=== PATIENT | male | born 1985 | race Caucasian/White ===

== ENCOUNTER 2019-10-23 08:25 | Inpatient (IN) | payer OTHER ==
[2019-10-23 09:17] VITALS: BMI 22.8
--- NOTE | 2019-10-23 10:13 | HP ---
CIWA Score Nausea/Vomitin-No Nausea/No Vomiting Muscle Tremors: None Anxiety: 0-No Anxiety, at Ease Agitation: 0-Normal Activity Paroxysmal Sweats: No Perspiration Orientation: 1-Uncertain about Date Tacttile Disturbances: 0-None Auditory Disturbances: 0-None Visual Disturbances: 1-Very Mild Sensitivity Headache: 0-None Present CIWA-Ar Total Score: 2 - Admission Criteria OASAS Guidelines: Admission for Medically Managed Detox: Requires at least one of the followin. CIWA greater than 12 2. Seizures within the past 24 hours 3. Delirium tremens within the past 24 hours 4. Hallucinations within the past 24 hours 5. Acute intervention needed for co occurring medical disorder 6. Acute intervention needed for co occurring psychiatric disorder 7. Severe withdrawal that cannot be handled at a lower level of care (continued vomiting, continued diarrhea, abnormal vital signs) requiring intravenous medication and/or fluids 8. Admitting History and Physical - Smoking History Smoking history: Current every day smoker Have you smoked in the past 12 months: Yes Aproximately how many cigarettes per day: 20 - Alcohol/Substance Use Hx Alcohol Use: Yes Admission ROS [facility] Allergies/Adverse Reactions: Allergies Allergy/AdvReac Type Severity Reaction Status Date / Time No Known Allergies Allergy Verified 10/23/19 09:04 History of Present Illness: Search Terms: louis carr, 1985 Search Date: 10/23/2019 10:07:39 AM The Drug Utilization Report below displays all of the controlled substance prescriptions, if any, that your patient has filled in the last twelve months. The information displayed on this report is compiled from pharmacy submissions to the Department, and accurately reflects the information as submitted by the pharmacies. This report was requested by: Mariella Schneider | Reference #: [id number] There are no results for the search terms that you entered. pt here referred by methadone program " for detox from heroin" , states current daily use 1 bundle /day IV cocaine 1 gr/day iv , first age of use 18 , latest use today , denies abscess , + OD in January , does not have Narcan @ home . cannabis use - 1/8 /day daily tobacco - daily etoh - occasional benzodiazepines - daily , 5 klonopin or 2-3 xanax x 2 years Pt is poor historian due to intoxication, falls asleep frequently during interview, awakened by verbal stimuli. PMHX : hep C s/p tx 2018 PSych : " I don't know " denies SI / Hi PSHX : denies Exam Limitations: Clinical Condition, Intoxication - Ebola screening Have you traveled outside of the country in the last 21 days: No (N) Have you had contact with anyone from an Ebola affected area: No - Review of Systems Constitutional: Loss of Appetite EENT: reports: Other (denies dysphagia) Respiratory: reports: No Symptoms reported Cardiac: reports: No Symptoms Reported GI: reports: Constipated, Poor Appetite : reports: No Symptoms Reported Musculoskeletal: reports: No Symptoms Reported Integumentary: reports: See HPI Neuro: reports: No Symptoms reported Endocrine: reports: No Symptoms Reported Hematology: reports: No Symptoms Reported Psychiatric: reports: Disorientated Patient History - Patient Medical History Hx Anemia: No Hx Asthma: No Hx Chronic Obstructive Pulmonary Disease (COPD): No Hx Cancer: No Hx Cardiac Disorders: No Hx Congestive Heart Failure: No Hx Hypertension: No Hx Hypercholesterolemia: No Hx Pacemaker: No HX Cerebrovascular Accident: No Hx Seizures: No Hx Dementia: No Hx Diabetes: No Hx Gastrointestinal Disorders: No Hx Liver Disease: Yes Hx Genitourinary Disorders: No Hx Sexually Transmitted Disorders: No Hx Renal Disease (ESRD): No Hx Thyroid Disease: No Hx Human Immunodeficiency Virus (HIV): No Hx Hepatitis C: Yes Hx Depression: No Hx Suicide Attempt: No Hx Bipolar Disorder: Yes Hx Schizophrenia: No - Patient Surgical History Past Surgical History: No Hx Neurologic Surgery: No Hx Cataract Extraction: No Hx Cardiac Surgery: No Hx Lung Surgery: No Hx Breast Surgery: No Hx Breast Biopsy: No Hx Abdominal Surgery: No Hx Appendectomy: No Hx Cholecystectomy: No Hx Genitourinary Surgery: No Hx Section: No Hx Orthopedic Surgery: No Anesthesia Reaction: No - PPD History Date: 02/04/16 - Smoking Cessation Smoking history: Current every day smoker Have you smoked in the past 12 months: Yes Aproximately how many cigarettes per day: 20 Hx Chewing Tobacco Use: No Initiated information on smoking cessation: Yes 'Breaking Loose' booklet given: 10/23/19 - Substances abused Heroin Substance route: Oral Frequency: Daily Amount used: 1 gram Age of first use: 19 Date of last use: 10/23/19 Crack Substance route: Smoking Frequency: Daily Amount used: 1/2 gram Age of first use: 18 Date of last use: 10/22/19 Cocaine Substance route: Injection Amount used: 1 gram Age of first use: 18 Date of last use: 10/22/19 Benzodiazepine (Klonopin) Other (specify): 2mg Substance route: Oral Frequency: Daily Amount used: 4mg Age of first use: 22 Date of last use: 10/23/19 Alprazolam (Xanax) Substance route: Oral Frequency: 3-6 times per week Amount used: 2 sticks Age of first use: 18 Date of last use: 10/23/19 Admission Physical Exam S - Vital Signs Vital Signs: Vital Signs - 24 hr 10/23/19 09:05 Temperature 97.5 F L Pulse Rate 57 L Respiratory 18 Rate Blood Pressure 110/67 - Physical General Appearance: Yes: Intoxicated HEENTM: Yes: EOMI, Hearing grossly Normal, Normocephalic, Normal Voice Respiratory: Yes: Lungs Clear, Normal Breath Sounds, No Respiratory Distress, No Accessory Muscle Use Neck: Yes: No masses,lesions,Nodules, Trachea in good position Cardiology: Yes: Regular Rhythm, Regular Rate, S1, S2, Bradycardia Abdominal: Yes: Non Tender, Soft Musculoskeletal: Yes: Gait Steady Extremities: Yes: Normal Range of Motion, Non-Tender Neurological: Yes: Alert, Motor Strength 5/5, Disoriented, Depressed Affect Integumentary: Yes: Dry, Warm, Track Perez (feliz ante-cubital c/d/i) - Diagnostic (1) Sedative, hypnotic or anxiolytic abuse Current Visit: Yes Status: Chronic (2) Cocaine dependence Current Visit: Yes Status: Chronic (3) Opioid dependence Current Visit: Yes Status: Chronic (4) Nicotine dependence Current Visit: Yes Status: Chronic Qualifiers: Nicotine product type: cigarettes Substance use status: uncomplicated Qualified Code(s): F17.210 - Nicotine dependence, cigarettes, uncomplicated (5) Cannabis dependence, uncomplicated Current Visit: Yes Status: Chronic Inpatient Rehab Admission - Rehab Decision to Admit Inpatient rehab admission?: No
[2019-10-23] MEDS ORDERED: BISMUTH SUBSALICYLATE 524 MG/30 ML UD PO PRN (10:28)
[2019-10-23] MEDS ORDERED: MAG HYDROX/AL HYDROX/SIMETH 30 ML UNIT-DOSE CUP PO PRN (10:28)
[2019-10-23] MEDS ORDERED: IBUPROFEN 400 MG TABLET (FP) PO PRN (10:28)
[2019-10-23] MEDS ORDERED: MENTHOL/PHENOL 1 EACH UD MM PRN (10:28)
[2019-10-23] MEDS ORDERED: MAGNESIUM CITRATE 300 ML BOTTLE PO PRN (10:28)
[2019-10-23] MEDS ORDERED: METHOCARBAMOL 500 MG TABLET PO PRN (10:28)
[2019-10-23] MEDS ORDERED: hydrOXYzine PAMOATE 25 MG CAPSULE (FP) PO PRN (10:28)
[2019-10-23] MEDS ORDERED: MAGNESIUM HYDROX 2400MG/30ML ORAL SUSPENSION 30 ML CUP PO PRN (10:28)
[2019-10-23] MEDS ORDERED: ACETAMINOPHEN 325 MG TABLET (FP) PO PRN ×2 (10:28)
[2019-10-23] MEDS: diazePAM 5 MG TABLET PO PRN ×2 (11:31→18:14)
[2019-10-23] MEDS: METHADONE HCL 40 MG DISPERSABLE TABLET PO SCH (12:55)
[2019-10-23] MEDS: diazePAM 5 MG TABLET PO SCH ×2 (15:02→22:08)
[2019-10-23 15:13] LABS: HEMATOCRIT 40.3 % (35.4-49); HEMOGLOBIN 13.6 GM/dL (11.7-16.9); MCHC 33.6 g/dl (32.0-35.9); MEAN CELL VOLUME 89.3 fl (80-96); MEAN PLT VOLUME 10.6 fl (7.5-11.1); PLATELET COUNT 162 K/MM3 (134-434); RBC 4.52 M/mm3 (4.00-5.60); RDW 13.1 % (11.9-15.9); WHITE BLOOD COUNT 5.5 K/mm3 (4.0-10.0)
[2019-10-23 15:22] LABS: ALBUMIN 3.5 g/dl (3.4-5.0); BILIRUBIN,TOTAL 0.8 mg/dL (0.2-1); BLOOD UREA NITROGEN 9.3 mg/dL (7-18); CALCIUM 8.7 mg/dL (8.5-10.1); POTASSIUM 4.3 mmol/L (3.5-5.1)
[2019-10-23] MEDS: MELATONIN 5 MG TABLETS PO PRN (22:07)
[2019-10-23] MEDS: THIAMINE HCL 100 MG TABLET (FP) PO SCH (22:07)
[2019-10-24] MEDS: diazePAM 5 MG TABLET PO PRN ×4 (04:01→20:50)
[2019-10-24] MEDS: diazePAM 5 MG TABLET PO SCH ×3 (05:54→22:08)
[2019-10-24] MEDS: METHADONE HCL 40 MG DISPERSABLE TABLET PO SCH (05:54)
[2019-10-24] MEDS ORDERED: ACETAMINOPHEN 325 MG TABLET (FP) PO ONE (09:38)
--- NOTE | 2019-10-24 09:43 | PN ---
[facility] CIWA - CIWA Score Nausea/Vomitin-No Nausea/No Vomiting Muscle Tremors: 4-Moderate,w/Arms Extend Anxiety: 4-Mod. Anxious/Guarded Agitation: 2 Paroxysmal Sweats: 1-Minimal Palms Moist Orientation: 0-Oriented Tacttile Disturbances: 1-Very Mild Itch/Numbness Auditory Disturbances: 0-None Visual Disturbances: 0-None Headache: 1-Very Mild CIWA-Ar Total Score: 13 BHS Progress Note (SOAP) Subjective: 34 years old male admitted on 10/23/19 for benzo withdrawal sx management treating with valium detox regimen general body ache tylenal 650mg po x 1 trouble stay in sleep belsomra 5 mg x 1 Objective: 10/24/19 09:47 Vital Signs Temperature 96.8 F L 10/24/19 09:19 Pulse Rate 68 10/24/19 09:19 Respiratory Rate 18 10/24/19 09:19 Blood Pressure 106/69 10/24/19 09:19 O2 Sat by Pulse Oximetry (%) 10/24/19 09:47 Laboratory Last Values WBC 5.5 K/mm3 (4.0-10.0) 10/23/19 10:40 RBC 4.52 M/mm3 (4.00-5.60) 10/23/19 10:40 Hgb 13.6 GM/dL (11.7-16.9) 10/23/19 10:40 Hct 40.3 % (35.4-49) 10/23/19 10:40 MCV 89.3 fl (80-96) 10/23/19 10:40 MCH 30.0 pg (25.7-33.7) 10/23/19 10:40 MCHC 33.6 g/dl (32.0-35.9) 10/23/19 10:40 RDW 13.1 % (11.9-15.9) 10/23/19 10:40 Plt Count 162 K/MM3 (134-434) 10/23/19 10:40 MPV 10.6 fl (7.5-11.1) 10/23/19 10:40 Sodium 138 mmol/L (136-145) 10/23/19 10:40 Potassium 4.3 mmol/L (3.5-5.1) 10/23/19 10:40 Chloride 104 mmol/L (98-107) 10/23/19 10:40 Carbon Dioxide 31 mmol/L (21-32) 10/23/19 10:40 Anion Gap 4 MMOL/L (8-16) L 10/23/19 10:40 BUN 9.3 mg/dL (7-18) 10/23/19 10:40 Creatinine 1.0 mg/dL (0.55-1.3) 10/23/19 10:40 Est GFR (CKD-EPI)AfAm 114.91 10/23/19 10:40 Est GFR (CKD-EPI)NonAf 99.15 10/23/19 10:40 Random Glucose 61 mg/dL (74-106) L 10/23/19 10:40 Calcium 8.7 mg/dL (8.5-10.1) 10/23/19 10:40 Total Bilirubin 0.8 mg/dL (0.2-1) 10/23/19 10:40 AST 12 U/L (15-37) L 10/23/19 10:40 ALT 17 U/L (13-61) 10/23/19 10:40 Alkaline Phosphatase 79 U/L (45-117) 10/23/19 10:40 Total Protein 7.0 g/dl (6.4-8.2) 10/23/19 10:40 Albumin 3.5 g/dl (3.4-5.0) 10/23/19 10:40 lab noted Assessment: 10/24/19 09:47 benzo withdrawal Plan: valium regimen received methadone 80 mg po today feeling better
[2019-10-24] MEDS: PRENATAL VITAMINS W/ FOLIC ACID TABLET (FP) PO SCH (10:16)
[2019-10-24] MEDS ORDERED: ONDANSETRON *ODT* 4 MG TABLET SL ONE (10:47)
[2019-10-24] MEDS ORDERED: SUVOREXANT 5 MG TABLET PO SCH (22:00)
[2019-10-24] MEDS: THIAMINE HCL 100 MG TABLET (FP) PO SCH (22:08)
[2019-10-25] MEDS: diazePAM 5 MG TABLET PO PRN ×2 (02:53→09:10)
[2019-10-25] MEDS: METHADONE HCL 40 MG DISPERSABLE TABLET PO SCH (05:52)
[2019-10-25] MEDS: diazePAM 5 MG TABLET PO SCH ×2 (05:52→17:26)
[2019-10-25] MEDS: PRENATAL VITAMINS W/ FOLIC ACID TABLET (FP) PO SCH (09:10)
--- NOTE | 2019-10-25 12:16 | PN ---
[facility] CIWA - CIWA Score Nausea/Vomitin-Mild Nausea/No Vomiting Muscle Tremors: 3 Anxiety: 3 Agitation: 2 Paroxysmal Sweats: 1-Minimal Palms Moist Orientation: 0-Oriented Tacttile Disturbances: 0-None Auditory Disturbances: 0-None Visual Disturbances: 0-None Headache: 0-None Present CIWA-Ar Total Score: 10 S Progress Note (SOAP) Subjective: 34 years old male admitted on 10/23/19 for benzo withdrawal sx management treating with valium detox regimen feeling better today less anxiety discuss aftercare with staff Objective: 10/25/19 12:16 Vital Signs Temperature 97.4 F L 10/25/19 09:20 Pulse Rate 59 L 10/25/19 09:20 Respiratory Rate 18 10/25/19 09:20 Blood Pressure 111/68 10/25/19 09:20 O2 Sat by Pulse Oximetry (%) Laboratory Last Values WBC 5.5 K/mm3 (4.0-10.0) 10/23/19 10:40 RBC 4.52 M/mm3 (4.00-5.60) 10/23/19 10:40 Hgb 13.6 GM/dL (11.7-16.9) 10/23/19 10:40 Hct 40.3 % (35.4-49) 10/23/19 10:40 MCV 89.3 fl (80-96) 10/23/19 10:40 MCH 30.0 pg (25.7-33.7) 10/23/19 10:40 MCHC 33.6 g/dl (32.0-35.9) 10/23/19 10:40 RDW 13.1 % (11.9-15.9) 10/23/19 10:40 Plt Count 162 K/MM3 (134-434) 10/23/19 10:40 MPV 10.6 fl (7.5-11.1) 10/23/19 10:40 Sodium 138 mmol/L (136-145) 10/23/19 10:40 Potassium 4.3 mmol/L (3.5-5.1) 10/23/19 10:40 Chloride 104 mmol/L (98-107) 10/23/19 10:40 Carbon Dioxide 31 mmol/L (21-32) 10/23/19 10:40 Anion Gap 4 MMOL/L (8-16) L 10/23/19 10:40 BUN 9.3 mg/dL (7-18) 10/23/19 10:40 Creatinine 1.0 mg/dL (0.55-1.3) 10/23/19 10:40 Est GFR (CKD-EPI)AfAm 114.91 10/23/19 10:40 Est GFR (CKD-EPI)NonAf 99.15 10/23/19 10:40 Random Glucose 61 mg/dL (74-106) L 10/23/19 10:40 Calcium 8.7 mg/dL (8.5-10.1) 10/23/19 10:40 Total Bilirubin 0.8 mg/dL (0.2-1) 10/23/19 10:40 AST 12 U/L (15-37) L 10/23/19 10:40 ALT 17 U/L (13-61) 10/23/19 10:40 Alkaline Phosphatase 79 U/L (45-117) 10/23/19 10:40 Total Protein 7.0 g/dl (6.4-8.2) 10/23/19 10:40 Albumin 3.5 g/dl (3.4-5.0) 10/23/19 10:40 RPR Titer Nonreactive (NONREACTIVE) 10/24/19 07:50 lab noted Assessment: 10/25/19 12:16 benzo withdrawal Plan: valium regimen
[2019-10-25] MEDS: MELATONIN 5 MG TABLETS PO PRN (22:15)
[2019-10-25] MEDS: THIAMINE HCL 100 MG TABLET (FP) PO SCH (22:15)
[2019-10-26] MEDS: METHADONE HCL 40 MG DISPERSABLE TABLET PO SCH (05:53)
[2019-10-26] MEDS ORDERED: diazePAM 5 MG TABLET PO ONE (06:00)
[2019-10-26 09:14] VITALS: BP 124/64; PULSE 70; TEMP 98.4
--- NOTE | 2019-10-26 12:44 | DS ---
[facility] Detox Discharge Summary Admission Date: 10/23/19 Discharge Date: 10/26/19 - History Present History: Opioid Dependence, Sedative Dependence, MMTP Pertinent Past History: Pt admitted on MAT methadone. Was also taking illicit benzo. Pt had valium taper and used prn valium.d/w pt jail effects of benzo- pt to f/u with MAT methadone program. Pt will f/u [facility] outpt program and if needed - Physical Exam Results Vital Signs: Vital Signs Temperature 98.4 F 10/26/19 09:11 Pulse Rate 70 10/26/19 09:11 Respiratory Rate 16 10/26/19 09:11 Blood Pressure 124/64 10/26/19 09:11 O2 Sat by Pulse Oximetry (%) - Treatment Hospital Course: Detox Protocol Followed, Detoxed Safely, Responded well, Discharged Condition Good - Medication Discharge Medications: Ambulatory Orders NK [No Known Home Medication] 02/02/16 - AMA Did Patient Leave Against Medical Advice: No
== END 2019-10-26 09:50 | disposition home or self-care (01) | DRG 773 ==
LOC: YASAS 08:25 → Y3N 10:45
PROVIDERS: ADMIT Allergy & Immunology; ATTEND Allergy & Immunology
PROC: HZ2ZZZZ Detoxification Services for Substance Abuse Treatment (ICD-10-PCS; principal; 2019-10-23)
DX: F11.23 Opioid dependence with withdrawal (principal); F14.20 Cocaine dependence, uncomplicated; F12.20 Cannabis dependence, uncomplicated; F13.10 Sedative, hypnotic or anxiolytic abuse, uncomplicated; F17.210 Nicotine dependence, cigarettes, uncomplicated; Z86.19 Personal history of other infectious and parasitic diseases
CPT/HCPCS: 36415; 80053; 85027; 86593; Q0162

== ENCOUNTER 2019-12-25 09:47 | Inpatient (IN) | payer OTHER ==
--- NOTE | 2019-12-25 10:04 | BHS.RME ---
Substance Use & Tx History - Substance Use History Benzodiazepines Substance amount: 3-4 xanax 5mg Frequency of use: Daily Substance route: Oral Date of Last Use: 12/25/19 Opiates (Heroin) Substance amount: 1 bundle Frequency of use: Daily Substance route: Injection (ex: intravenous or skin popping) Date of Last Use: 12/25/19 Cocaine (Crack) Substance amount: 2-3 grams Frequency of use: Daily Substance route: Smoking Date of Last Use: 12/24/19 Cannabis Substance amount: 2-3 grams Frequency of use: Daily Substance route: Smoking Date of Last Use: 12/24/19 Nicotine Substance amount: 1 pack Frequency of use: Daily Substance route: Smoking Date of Last Use: 12/25/19 - Last Treatment Date of last treatment: 4 weeks ago Treatment type: Substance Use Disorder ([facility]) Where was last treatment: Detox Physical/Psych/Mental Status - Behavior General Behavior: Increased activity (restlessness, agitation) Eye Contact: Normal - Cooperativeness Cooperativeness: Cooperative - Thinking Thought Processes: Tight, Logical, Goal Directed Thought content: Future oriented - Physical Health Problems Is patient presently having any pain?: No Does patient presently have any injuries (include location): No Does patient currently have a fever: No Is patient : No COWS - Scale Resting Pulse: 1= NV 81-100 Sweatin= Beads of Sweat on Face Restless Observation: 3= Extraneous Movement Pupil Size: 1= Pupils >than Normal Bone or Joint Aches: 1= Mild Discomfort Runny Nose/ Eye Tearin= Runny Nose/Eyes GI Upset > 30mins: 1= Stomach Cramp Tremor Observation: 2= Slight Tremor Visible Yawning Observation: 1= 1-2x During Session Anxiety or Irritability: 1=Feels Anxious/Irritable Goose Flesh Skin: 0=Smooth Skin COWS Score: 16 (used this morning) CIWA Agitation: 3 Paroxysmal Sweats: 3 Orientation: 0-Oriented
--- NOTE | 2019-12-25 10:56 | HP ---
COWS - Scale Resting Pulse: 1= SD 81-100 Sweatin= Beads of Sweat on Face Restless Observation: 3= Extraneous Movement Pupil Size: 1= Pupils >than Normal Bone or Joint Aches: 1= Mild Discomfort Runny Nose/ Eye Tearin= Runny Nose/Eyes GI Upset > 30mins: 1= Stomach Cramp Tremor Observation: 2= Slight Tremor Visible Yawning Observation: 1= 1-2x During Session Anxiety or Irritability: 1=Feels Anxious/Irritable Goose Flesh Skin: 0=Smooth Skin COWS Score: 16 (used this morning) CIWA Score - Admission Criteria OASAS Guidelines: Admission for Medically Managed Detox: Requires at least one of the followin. CIWA greater than 12 2. Seizures within the past 24 hours 3. Delirium tremens within the past 24 hours 4. Hallucinations within the past 24 hours 5. Acute intervention needed for co occurring medical disorder 6. Acute intervention needed for co occurring psychiatric disorder 7. Severe withdrawal that cannot be handled at a lower level of care (continued vomiting, continued diarrhea, abnormal vital signs) requiring intravenous medication and/or fluids 8. Admitting History and Physical - Admission Chief Complaint: " I am desperate and I need help." History of Present Illness: 34 year old male with heroin dependence on MAT at [facility] on 100 mg of methadone daily. He is dependent on sedative. He is using high doses of Xanax of 5 mg at 3-4 tabs per day. He has overdosed many times, last one was 2 months ago. He is at high risk for overdose as he is using intravenously and has no narcan kit. He is desperate to be admitted as he wishes to cease the use of sedatives. He also smokes of ciggarettes 1 ppd for many years. He is using 1 bundle of heroin daily on top of his methadone and still feels its effect. He last used on 12/24/19. PMH: None, HCV + Psurg: None Psych: Anxiety disorder and Bipolar Disorder This is a high risk patient for overdose. He needs detox and senior care rehab with slow taper off of benzodiazepines. History Source: Patient Limitations to Obtaining History: No Limitations - Past Medical History Hepatobiliary: Yes: Hepatitis C Psych: Yes: Anxiety, Bipolar - Past Surgical History Past Surgical History: Yes: None - Smoking History Smoking history: Current every day smoker Have you smoked in the past 12 months: Yes Aproximately how many cigarettes per day: 20 - Alcohol/Substance Use Hx Alcohol Use: Yes - Social History Usual Living Arrangement: Yes: Alone Do you think of yourself as: Straight/Heterosexual ADL: Independent Occupation: unemployed History of Recent Travel: No Admission ROS [facility] Allergies/Adverse Reactions: Allergies Allergy/AdvReac Type Severity Reaction Status Date / Time No Known Allergies Allergy Verified 12/25/19 10:49 Exam Limitations: No Limitations - Ebola screening Have you traveled outside of the country in the last 21 days: No Have you had contact with anyone from an Ebola affected area: No Have you been sick,other than usual withdrawal symptoms: No Do you have a fever: No Patient History - Patient Medical History Hx Anemia: No Hx Asthma: No Hx Chronic Obstructive Pulmonary Disease (COPD): No Hx Cancer: No Hx Cardiac Disorders: No Hx Congestive Heart Failure: No Hx Hypertension: No Hx Hypercholesterolemia: No Hx Pacemaker: No HX Cerebrovascular Accident: No Hx Seizures: No Hx Dementia: No Hx Diabetes: No Hx Gastrointestinal Disorders: No Hx Liver Disease: Yes Hx Genitourinary Disorders: No Hx Sexually Transmitted Disorders: No Hx Renal Disease (ESRD): No Hx Thyroid Disease: No Hx Human Immunodeficiency Virus (HIV): No Hx Hepatitis C: Yes Hx Depression: No Hx Suicide Attempt: No Hx Bipolar Disorder: Yes Hx Schizophrenia: No - Patient Surgical History Past Surgical History: No Hx Neurologic Surgery: No Hx Cataract Extraction: No Hx Cardiac Surgery: No Hx Lung Surgery: No Hx Breast Surgery: No Hx Breast Biopsy: No Hx Abdominal Surgery: No Hx Appendectomy: No Hx Cholecystectomy: No Hx Genitourinary Surgery: No Hx Section: No Hx Orthopedic Surgery: No Anesthesia Reaction: No - PPD History Previous Implant?: Yes Documented Results: Negative w/proof Implanted On Prior R Admission?: Yes Date: 10/25/19 Results: negative PPD to be Administered?: No - Smoking Cessation Smoking history: Current every day smoker Have you smoked in the past 12 months: Yes Aproximately how many cigarettes per day: 20 Hx Chewing Tobacco Use: No Initiated information on smoking cessation: Yes 'Breaking Loose' booklet given: 12/25/19 - Substances abused Cocaine Substance route: Injection Frequency: Daily Amount used: 3 grams Age of first use: 15 Date of last use: 12/25/19 Alprazolam (Xanax) Substance route: Oral Frequency: Daily Amount used: 25mg Age of first use: 22 Date of last use: 12/24/19 Marijuana/Hashish Substance route: Smoking Frequency: Daily Amount used: 3 grams Age of first use: 15 Date of last use: 12/24/19 Heroin Substance route: Injection Frequency: Daily Amount used: 1 gram Age of first use: 22 Date of last use: 12/25/19 Admission Physical Exam [facility] Physical General Appearance: Yes: Mild Distress, Irritable, Sweating, Anxious HEENTM: Yes: EOMI, Hearing grossly Normal, Normal ENT Inspection, Normocephalic , Normal Voice, ISSA, Pharynx Normal, Tm's normal Respiratory: Yes: Chest Non-Tender, Lungs Clear, Normal Breath Sounds, No Respiratory Distress, No Accessory Muscle Use Neck: Yes: No masses,lesions,Nodules, Supple, Trachea in good position Breast: Yes: Within Normal Limits Cardiology: Yes: Regular Rhythm, S1, S2, Tachycardia Abdominal: Yes: Non Tender, Flat, Soft, Increased Bowel Sounds Genitourinary: Yes: Within Normal Limits Back: Yes: Normal Inspection Musculoskeletal: Yes: full range of Motion, Gait Steady, Pelvis Stable Extremities: Yes: Normal Capillary Refill, Normal Inspection, Normal Range of Motion, Non-Tender Neurological: Yes: workgroup leader II-XII NML intact, Fully Oriented, Alert, Motor Strength 5/5, Normal Mood/Affect, Normal Response Integumentary: Yes: Normal Color, Warm Lymphatic: Yes: Within Normal Limits Cleared for Admission [facility] - Detox or Rehab [facility] Level of Care: Medically Managed Detox Regimen/Protocol: Valium Claeared for Rehab Admission: No Screened but not Admitted - Documentation of Visit Screened but not Admitted: No Breathalyzer - Breathalyzer Breathalyzer: 0 Urine Drug Screen - Test Device Lot number: [id number] Expiration date: 12/25/19 - Control Is test valid?: Yes - Results Drug screen NEGATIVE: No Urine drug screen results: THC-Marijuana, BERNARD-Cocaine, MET-Methamphetamine, AMP- Amphetamines, MOP-Opiates, MTD-Methadone, BZO-Benzodiazepines Inpatient Rehab Admission - Rehab Decision to Admit Inpatient rehab admission?: No
[2019-12-25 11:04] VITALS: BMI 21.7
[2019-12-25] MEDS ORDERED: MAGNESIUM CITRATE 300 ML BOTTLE PO PRN (11:08)
[2019-12-25] MEDS ORDERED: MAG HYDROX/AL HYDROX/SIMETH 30 ML UNIT-DOSE CUP PO PRN (11:08)
[2019-12-25] MEDS ORDERED: ACETAMINOPHEN 325 MG TABLET (FP) PO PRN ×2 (11:08)
[2019-12-25] MEDS ORDERED: MENTHOL/PHENOL 1 EACH UD MM PRN (11:08)
[2019-12-25] MEDS ORDERED: hydrOXYzine PAMOATE 25 MG CAPSULE (FP) PO PRN (11:08)
[2019-12-25] MEDS ORDERED: IBUPROFEN 400 MG TABLET (FP) PO PRN (11:08)
[2019-12-25] MEDS ORDERED: METHOCARBAMOL 500 MG TABLET PO PRN (11:08)
[2019-12-25] MEDS ORDERED: MAGNESIUM HYDROX 2400MG/30ML ORAL SUSPENSION 30 ML CUP PO PRN (11:08)
[2019-12-25] MEDS: NICOTINE 7 MG/24 HOURS TOPICAL PATCH TD SCH (14:03)
[2019-12-25] MEDS: diazePAM 5 MG TABLET PO SCH ×2 (14:04→22:18)
[2019-12-25 16:21] LABS: HEMATOCRIT 41.7 % (35.4-49); HEMOGLOBIN 13.7 GM/dL (11.7-16.9); MCH 29.4 pg (25.7-33.7); MEAN CELL VOLUME 89.1 fl (80-96); MEAN PLT VOLUME 9.7 fl (7.5-11.1); PLATELET COUNT 180 K/MM3 (134-434); RBC 4.68 M/mm3 (4.00-5.60); RDW 14.5 % (11.9-15.9); WHITE BLOOD COUNT 4.4 K/mm3 (4.0-10.0)
[2019-12-25 16:27] LABS: ALBUMIN 3.7 g/dl (3.4-5.0); BILIRUBIN,TOTAL 1.1 mg/dL (0.2-1); BLOOD UREA NITROGEN 16.2 mg/dL (7-18); CALCIUM 9.4 mg/dL (8.5-10.1); CREATININE 0.8 mg/dL (0.55-1.3); TOT PROT 7.8 g/dl (6.4-8.2)
[2019-12-25] MEDS: diazePAM 5 MG TABLET PO PRN ×2 (17:30→20:49)
[2019-12-25] MEDS: THIAMINE HCL 100 MG TABLET (FP) PO SCH (22:18)
[2019-12-25] MEDS: MELATONIN 5 MG TABLETS PO PRN (22:18)
[2019-12-26] MEDS: diazePAM 5 MG TABLET PO PRN ×3 (02:07→18:08)
[2019-12-26] MEDS ORDERED: METHADONE HCL 10 MG TABLET ONE (04:29)
[2019-12-26] MEDS ORDERED: METHADONE HCL 40 MG DISPERSABLE TABLET ONE (04:30)
[2019-12-26] MEDS ORDERED: METHADONE HCL 10 MG TABLET PO SCH (06:00)
[2019-12-26] MEDS: METHADONE 80 MG, METHADONE 20 MG PO SCH (06:27)
[2019-12-26] MEDS: diazePAM 5 MG TABLET PO SCH ×3 (06:27→21:50)
[2019-12-26] MEDS: NICOTINE 7 MG/24 HOURS TOPICAL PATCH TD SCH (10:32)
[2019-12-26] MEDS: PRENATAL VITAMINS W/ FOLIC ACID TABLET (FP) PO SCH (10:32)
--- NOTE | 2019-12-26 13:11 | PN ---
BHS COWS - Scale Resting Pulse: 1= DC 81-100 Sweatin= Chills/Flushing Restless Observation: 1= Difficult to Sit Still Pupil Size: 1= Pupils >than Normal Bone or Joint Aches: 2= Severe Diffuse Aches Runny Nose/ Eye Tearin= Nasal Congestion GI Upset > 30mins: 0= None Tremor Observation of Outstretched Hands: 0= None Yawning Observation: 0= None Anxiety or Irritability: 1=Feels Anxious/Irritable Goose Flesh Skin: 0=Smooth Skin COWS Score: 8 BHS Progress Note (SOAP) Subjective: interrupted sleep, sweats , lighttheaded Objective: 12/26/19 13:08 Vital Signs Temperature 97.9 F 12/26/19 09:15 Pulse Rate 81 12/26/19 09:15 Respiratory Rate 12/26/19 09:15 Blood Pressure 105/63 12/26/19 09:15 O2 Sat by Pulse Oximetry (%) Laboratory Tests 12/25/19 12/25/19 12/25/19 11:20 11:20 11:20 WBC 4.4 RBC 4.68 Hgb 13.7 Hct 41.7 MCV 89.1 MCH 29.4 MCHC 33.0 RDW 14.5 D Plt Count 180 MPV 9.7 Sodium 135 L Potassium 4.0 Chloride 101 Carbon Dioxide 29 Anion Gap 5 L BUN 16.2 Creatinine 0.8 Est GFR (CKD-EPI)AfAm 136.99 Est GFR (CKD-EPI)NonAf 118.20 Random Glucose 144 H Calcium 9.4 Total Bilirubin 1.1 H AST 208 H ALT 282 H Alkaline Phosphatase 145 H Total Protein 7.8 Albumin 3.7 RPR Titer Nonreactive pt aox3 in nad , ambulating Assessment: 12/26/19 13:09 withdrawal sx's lightheaded- mild dehydration elevated transaminases hyperglycemia 12/26/19 13:11 Plan: cont detox increase fluids repeat sgot/sgpt d/c tylenol bgm daily
[2019-12-26] MEDS: MELATONIN 5 MG TABLETS PO PRN (21:50)
[2019-12-26] MEDS: THIAMINE HCL 100 MG TABLET (FP) PO SCH (21:50)
[2019-12-27] MEDS ORDERED: METHADONE HCL 40 MG DISPERSABLE TABLET ONE (04:32)
[2019-12-27] MEDS ORDERED: METHADONE HCL 10 MG TABLET ONE (04:32)
[2019-12-27] MEDS: METHADONE 80 MG, METHADONE 20 MG PO SCH (06:01)
[2019-12-27] MEDS: diazePAM 5 MG TABLET PO SCH ×2 (06:01→18:25)
[2019-12-27] MEDS: BISMUTH SUBSALICYLATE 262 MG/15 ML BTL PO PRN ×2 (06:27→08:41)
[2019-12-27] MEDS: diazePAM 5 MG TABLET PO PRN ×4 (08:41→21:06)
[2019-12-27 10:11] LABS: SGOT/AST 222 U/L (15-37); SGPT/ALT 305 U/L (13-61)
[2019-12-27] MEDS ORDERED: cloNIDine HCL 0.1 MG TABLET PO PRN (10:59)
--- NOTE | 2019-12-27 11:03 | PN ---
S CIWA - CIWA Score Nausea/Vomitin-Mild Nausea/No Vomiting Muscle Tremors: 1-None Visible, but [place] Anxiety: 1-Mildly Anxious Agitation: 1-Slight > Activity Paroxysmal Sweats: No Perspiration Orientation: 0-Oriented Tacttile Disturbances: 0-None Auditory Disturbances: 0-None Visual Disturbances: 0-None Headache: 0-None Present CIWA-Ar Total Score: 4 BHS Progress Note (SOAP) Subjective: pr here for benzo detox. On methadone. says he is fine. Wants to go to rehab O: Vital Signs - 24 hr 12/26/19 12/26/19 12/26/19 13:20 16:55 21:15 Temperature 97.7 F 97.9 F 97.3 F L Pulse Rate 65 60 68 Respiratory 18 18 17 Rate Blood Pressure 121/59 L 102/63 113/61 12/27/19 12/27/19 12/27/19 00:28 05:58 10:48 Temperature 96.8 F L 97.9 F Pulse Rate 63 66 Respiratory 18 18 16 Rate Blood Pressure 119/59 L 99/63 Laboratory Tests 12/25/19 12/25/19 12/25/19 11:20 11:20 11:20 WBC 4.4 RBC 4.68 Hgb 13.7 Hct 41.7 MCV 89.1 MCH 29.4 MCHC 33.0 RDW 14.5 D Plt Count 180 MPV 9.7 Sodium 135 L Potassium 4.0 Chloride 101 Carbon Dioxide 29 Anion Gap 5 L BUN 16.2 Creatinine 0.8 Est GFR (CKD-EPI)AfAm 136.99 Est GFR (CKD-EPI)NonAf 118.20 POC Glucometer Random Glucose 144 H Calcium 9.4 Total Bilirubin 1.1 H AST 208 H ALT 282 H Alkaline Phosphatase 145 H Total Protein 7.8 Albumin 3.7 RPR Titer Nonreactive 12/27/19 12/27/19 05:27 07:30 WBC RBC Hgb Hct MCV MCH MCHC RDW Plt Count MPV Sodium Potassium Chloride Carbon Dioxide Anion Gap BUN Creatinine Est GFR (CKD-EPI)AfAm Est GFR (CKD-EPI)NonAf POC Glucometer 107 Random Glucose Calcium Total Bilirubin AST 222 H ALT 305 H Alkaline Phosphatase Total Protein Albumin RPR Titer high liver enzymes- repeat still high a/p Polysubstance use, in a methadone program here for benzo detox increased liver enzymes- check HCV test, HCV RNA negative 03/2019
[2019-12-27] MEDS: NICOTINE 7 MG/24 HOURS TOPICAL PATCH TD SCH (11:07)
[2019-12-27] MEDS: PRENATAL VITAMINS W/ FOLIC ACID TABLET (FP) PO SCH (11:07)
[2019-12-27] MEDS: THIAMINE HCL 100 MG TABLET (FP) PO SCH (23:21)
[2019-12-28] MEDS: diazePAM 5 MG TABLET PO PRN (01:14)
[2019-12-28] MEDS ORDERED: METHADONE HCL 10 MG TABLET ONE (04:35)
[2019-12-28] MEDS ORDERED: METHADONE HCL 40 MG DISPERSABLE TABLET ONE (04:35)
[2019-12-28] MEDS: METHADONE 80 MG, METHADONE 20 MG PO SCH (05:56)
[2019-12-28] MEDS ORDERED: diazePAM 5 MG TABLET PO ONE (06:00)
[2019-12-28 06:32] VITALS: BP 97/51; PULSE 60; TEMP 97.2
--- NOTE | 2019-12-28 10:44 | EKG ---
Test Reason : Blood Pressure : / mmHG Vent. Rate : 061 BPM Atrial Rate : 061 BPM P-R Int : 136 ms QRS Dur : 108 ms QT Int : 454 ms P-R-T Axes : 040 047 041 degrees QTc Int : 457 ms NORMAL SINUS RHYTHM NON-SPECIFIC INTRA-VENTRICULAR CONDUCTION DELAY NO PREVIOUS ECGS AVAILABLE Confirmed by ELISE ALVA MD ([id number]) on 12/28/2019 10:44:27 AM Referred By: Confirmed By:ELISE ALVA MD
== END 2019-12-28 07:00 | disposition home or self-care (01) | DRG 773 ==
LOC: YASAS 09:47 → Y6N 11:44
PROVIDERS: ADMIT Allergy & Immunology; ATTEND Allergy & Immunology
PROC: HZ2ZZZZ Detoxification Services for Substance Abuse Treatment (ICD-10-PCS; principal; 2019-12-25)
DX: F13.230 Sedative, hypnotic or anxiolytic dependence with withdrawal, uncomplicated (principal); F11.23 Opioid dependence with withdrawal; F14.20 Cocaine dependence, uncomplicated; F12.20 Cannabis dependence, uncomplicated; F17.210 Nicotine dependence, cigarettes, uncomplicated; F31.9 Bipolar disorder, unspecified; F41.9 Anxiety disorder, unspecified; R94.5 Abnormal results of liver function studies; R73.9 Hyperglycemia, unspecified
CPT/HCPCS: 36415; 80053; 82962; 84450; 84460; 85027; 86593; 93005; 93010

== ENCOUNTER 2021-04-03 08:18 | Inpatient (IN) | payer OTHER ==
[2021-04-03 08:51] VITALS: BMI 23.5
[2021-04-03] MEDS ORDERED: MAGNESIUM CITRATE 300 ML BOTTLE PO PRN (09:28)
[2021-04-03] MEDS ORDERED: NICOTINE POLACRILEX 2 MG GUM BUC PRN (09:28)
[2021-04-03] MEDS ORDERED: MENTHOL/PHENOL 1 EACH UD MM PRN (09:28)
[2021-04-03] MEDS ORDERED: BISMUTH SUBSALICYLATE 524 MG/30 ML PO PRN (09:28)
[2021-04-03] MEDS ORDERED: IBUPROFEN 400 MG TABLET (FP) PO PRN (09:28)
[2021-04-03] MEDS ORDERED: MAGNESIUM HYDROX 2400MG/30ML ORAL SUSPENSION 30 ML CUP PO PRN (09:28)
[2021-04-03] MEDS ORDERED: MAG HYDROX/AL HYDROX/SIMETH 30 ML UNIT-DOSE CUP PO PRN (09:28)
[2021-04-03] MEDS ORDERED: ACETAMINOPHEN 325 MG TABLET (FP) PO PRN ×2 (09:28)
[2021-04-03] MEDS ORDERED: hydrOXYzine PAMOATE 25 MG CAPSULE (FP) PO SCH (10:00)
[2021-04-03] MEDS: hydrOXYzine PAMOATE 25 MG CAPSULE (FP) PO PRN (11:41)
[2021-04-03] MEDS: diazePAM 5 MG TABLET PO SCH ×3 (11:42→22:28)
[2021-04-03] MEDS: PRENATAL VITAMINS W/ FOLIC ACID TABLET (FP) PO SCH (11:42)
[2021-04-03] MEDS: METHOCARBAMOL 500 MG TABLET PO PRN (11:42)
[2021-04-03] MEDS: NICOTINE 14 MG/24 HOURS TOPICAL PATCH TD SCH (11:44)
[2021-04-03 12:10] LABS: HEMATOCRIT 37.3 % (35.4-49); HEMOGLOBIN 12.6 GM/dL (11.7-16.9); MCH 29.4 pg (25.7-33.7); MCHC 33.8 g/dl (32.0-35.9); MEAN PLT VOLUME 10.6 fl (7.5-11.1); PLATELET COUNT 163 K/MM3 (134-434); RBC 4.29 M/mm3 (4.00-5.60); RDW 13.3 % (11.9-15.9); WHITE BLOOD COUNT 4.7 K/mm3 (4.0-10.0)
[2021-04-03 12:22] LABS: ALBUMIN 3.4 g/dl (3.4-5.0); BLOOD UREA NITROGEN 10.2 mg/dL (7-18); CALCIUM 8.8 mg/dL (8.5-10.1)
[2021-04-03 12:25] LABS: CREATININE 0.8 mg/dL (0.55-1.3)
[2021-04-03 12:27] LABS: BILIRUBIN,TOTAL 0.6 mg/dL (0.2-1); TOT PROT 6.9 g/dl (6.4-8.2)
[2021-04-03 13:04] LABS: HIV INTERPRETATION NEGATIVE (NEGATIVE)
[2021-04-03] MEDS: diazePAM 5 MG TABLET PO PRN (15:51)
[2021-04-03] MEDS: MELATONIN 5 MG TABLETS PO SCH (22:28)
[2021-04-03] MEDS: THIAMINE HCL 100 MG TABLET (FP) PO SCH (22:28)
[2021-04-04] MEDS ORDERED: METHADONE HCL 40 MG DISPERSABLE TABLET ONE (04:47)
[2021-04-04] MEDS ORDERED: METHADONE HCL 10 MG TABLET ONE (04:47)
[2021-04-04] MEDS ORDERED: METHADONE HCL 10 MG TABLET PO SCH (06:00)
[2021-04-04] MEDS: METHADONE 80 MG, METHADONE 30 MG PO SCH (06:06)
[2021-04-04] MEDS: diazePAM 5 MG TABLET PO SCH ×4 (06:08→22:23)
[2021-04-04] MEDS: NICOTINE 14 MG/24 HOURS TOPICAL PATCH TD SCH (10:15)
[2021-04-04] MEDS: PRENATAL VITAMINS W/ FOLIC ACID TABLET (FP) PO SCH (10:15)
[2021-04-04] MEDS: hydrOXYzine PAMOATE 25 MG CAPSULE (FP) PO PRN ×2 (10:16→18:09)
[2021-04-04] MEDS: ONDANSETRON *ODT* 4 MG TABLET SL PRN (10:16)
[2021-04-04] MEDS: METHOCARBAMOL 500 MG TABLET PO PRN ×2 (10:16→18:09)
[2021-04-04] MEDS: THIAMINE HCL 100 MG TABLET (FP) PO SCH (22:23)
[2021-04-04] MEDS: MELATONIN 5 MG TABLETS PO SCH (22:23)
[2021-04-05] MEDS: diazePAM 5 MG TABLET PO PRN ×2 (00:34→10:09)
[2021-04-05] MEDS ORDERED: METHADONE HCL 10 MG TABLET ONE (03:43)
[2021-04-05] MEDS ORDERED: METHADONE HCL 40 MG DISPERSABLE TABLET ONE (03:44)
[2021-04-05] MEDS: METHOCARBAMOL 500 MG TABLET PO PRN ×2 (03:59→22:29)
[2021-04-05] MEDS: METHADONE 80 MG, METHADONE 30 MG PO SCH (06:13)
[2021-04-05] MEDS: hydrOXYzine PAMOATE 25 MG CAPSULE (FP) PO PRN ×3 (06:14→22:28)
[2021-04-05] MEDS: diazePAM 5 MG TABLET PO SCH ×3 (06:14→22:27)
[2021-04-05] MEDS: NICOTINE 14 MG/24 HOURS TOPICAL PATCH TD SCH (10:08)
[2021-04-05] MEDS: PRENATAL VITAMINS W/ FOLIC ACID TABLET (FP) PO SCH (10:11)
[2021-04-05] MEDS: THIAMINE HCL 100 MG TABLET (FP) PO SCH (22:28)
[2021-04-05] MEDS: MELATONIN 5 MG TABLETS PO SCH (22:28)
[2021-04-06] MEDS: diazePAM 5 MG TABLET PO PRN (03:51)
[2021-04-06] MEDS: METHOCARBAMOL 500 MG TABLET PO PRN ×3 (03:51→22:21)
[2021-04-06] MEDS ORDERED: METHADONE HCL 10 MG TABLET ONE (04:32)
[2021-04-06] MEDS ORDERED: METHADONE HCL 40 MG DISPERSABLE TABLET ONE (04:32)
[2021-04-06] MEDS: METHADONE 80 MG, METHADONE 30 MG PO SCH (06:01)
[2021-04-06] MEDS: diazePAM 5 MG TABLET PO SCH ×2 (06:01→17:27)
[2021-04-06] MEDS: PRENATAL VITAMINS W/ FOLIC ACID TABLET (FP) PO SCH (10:13)
[2021-04-06] MEDS: NICOTINE 14 MG/24 HOURS TOPICAL PATCH TD SCH (10:13)
[2021-04-06] MEDS: hydrOXYzine PAMOATE 25 MG CAPSULE (FP) PO PRN ×2 (10:16→22:21)
[2021-04-06] MEDS: ONDANSETRON *ODT* 4 MG TABLET SL PRN (10:16)
[2021-04-06 20:22] VITALS: PULSE 55; TEMP 96.9
[2021-04-06] MEDS: MELATONIN 5 MG TABLETS PO SCH (22:20)
[2021-04-06] MEDS: THIAMINE HCL 100 MG TABLET (FP) PO SCH (22:20)
[2021-04-07] MEDS ORDERED: METHADONE HCL 40 MG DISPERSABLE TABLET ONE (03:34)
[2021-04-07] MEDS ORDERED: METHADONE HCL 10 MG TABLET ONE (03:34)
[2021-04-07] MEDS: METHADONE 80 MG, METHADONE 30 MG PO SCH (05:36)
[2021-04-07] MEDS ORDERED: diazePAM 5 MG TABLET PO ONE (06:00)
[2021-04-07 06:31] VITALS: BP 97/57
[2021-04-07] MEDS: NICOTINE 14 MG/24 HOURS TOPICAL PATCH TD SCH (09:00)
[2021-04-07] MEDS: PRENATAL VITAMINS W/ FOLIC ACID TABLET (FP) PO SCH (09:00)
[2021-04-08 06:09] LABS: SARS-CoV-2 NAA Not Detected (Not Detected)
== END 2021-04-07 09:05 | disposition home or self-care (01) | DRG 773 ==
LOC: YASAS 08:18 → Y3N 09:36
PROVIDERS: ADMIT Allergy & Immunology; ATTEND Allergy & Immunology
PROC: HZ2ZZZZ Detoxification Services for Substance Abuse Treatment (ICD-10-PCS; principal; 2021-04-03)
DX: F10.230 Alcohol dependence with withdrawal, uncomplicated (principal); F13.230 Sedative, hypnotic or anxiolytic dependence with withdrawal, uncomplicated; F11.20 Opioid dependence, uncomplicated; F14.20 Cocaine dependence, uncomplicated; F16.20 Hallucinogen dependence, uncomplicated; F17.210 Nicotine dependence, cigarettes, uncomplicated; F19.282 Other psychoactive substance dependence with psychoactive substance-induced sleep disorder; F19.24 Other psychoactive substance dependence with psychoactive substance-induced mood disorder; F31.9 Bipolar disorder, unspecified; F90.9 Attention-deficit hyperactivity disorder, unspecified type; B18.2 Chronic viral hepatitis C; M54.5 Low back pain; G89.29 Other chronic pain; Z62.810 Personal history of physical and sexual abuse in childhood; Z91.410 Personal history of adult physical and sexual abuse
CPT/HCPCS: 36415; 80053; 85027; 86780; 87389; C9803; Q0162; U0003; U0005

== ENCOUNTER 2022-03-16 09:22 | Inpatient (IN) | payer MEDICARE, OTHER ==
[2022-03-16 09:59] VITALS: BMI 26.1
[2022-03-16] MEDS ORDERED: DICYCLOMINE HCL 10 MG CAPSULE PO PRN (10:38)
[2022-03-16] MEDS ORDERED: BENZOCAINE/MENTHOL (CHLORASEPTIC ) LOZENGE MM PRN (10:38)
[2022-03-16] MEDS ORDERED: LOPERAMIDE HCL 2 MG CAPSULE PO PRN (10:38)
[2022-03-16] MEDS ORDERED: ONDANSETRON *ODT* 4 MG TABLET SL PRN (10:38)
[2022-03-16] MEDS ORDERED: NICOTINE 10 MG CARTRIDGE (INHALER) IH PRN (10:38)
[2022-03-16] MEDS ORDERED: MAG HYDROX/AL HYDROX/SIMETH 30 ML UNIT-DOSE CUP PO PRN (10:38)
[2022-03-16] MEDS ORDERED: BISMUTH SUBSALICYLATE 524 MG/30 ML PO PRN (10:38)
[2022-03-16] MEDS ORDERED: NALOXONE HCL (KLOXXADO) 8 MG SPRAY NS PRN (10:38)
[2022-03-16] MEDS ORDERED: MAGNESIUM CITRATE 300 ML BOTTLE PO PRN (10:38)
[2022-03-16] MEDS ORDERED: ACETAMINOPHEN 325 MG TABLET (FP) PO PRN ×2 (10:38)
[2022-03-16] MEDS ORDERED: MAGNESIUM HYDROX 2400MG/30ML ORAL SUSPENSION 30 ML CUP PO PRN (10:38)
[2022-03-16] MEDS ORDERED: IBUPROFEN 400 MG TABLET (FP) PO PRN (10:38)
[2022-03-16] MEDS: PRENATAL VITAMINS W/ FOLIC ACID TABLET (FP) PO SCH (11:59)
[2022-03-16] MEDS: METHOCARBAMOL 500 MG TABLET PO PRN ×2 (12:01→18:14)
[2022-03-16] MEDS: hydrOXYzine PAMOATE 25 MG CAPSULE (FP) PO SCH ×3 (14:47→22:53)
[2022-03-16] MEDS: THIAMINE HCL 100 MG TABLET (FP) PO SCH (22:53)
[2022-03-16] MEDS: MELATONIN 5 MG TABLETS PO SCH (22:53)
[2022-03-17] MEDS ORDERED: methaDONE HCL 40 MG DISPERSABLE TABLET ONE (04:27)
[2022-03-17] MEDS ORDERED: methaDONE HCL 10 MG TABLET ONE (04:27)
[2022-03-17] MEDS: hydrOXYzine PAMOATE 25 MG CAPSULE (FP) PO SCH ×5 (06:07→23:42)
[2022-03-17] MEDS ORDERED: methaDONE HCL 40 MG DISPERSABLE TABLET PO SCH (10:00)
[2022-03-17] MEDS: PRENATAL VITAMINS W/ FOLIC ACID TABLET (FP) PO SCH (10:37)
[2022-03-17] MEDS: METHOCARBAMOL 500 MG TABLET PO PRN (10:39)
[2022-03-17 10:58] LABS: HEMATOCRIT 37.9 % (35.4-49); HEMOGLOBIN 12.9 GM/dL (11.7-16.9); MCH 28.8 pg (25.7-33.7); MCHC 34.1 g/dl (32.0-35.9); MEAN CELL VOLUME 84.7 fl (80-96); MEAN PLT VOLUME 9.2 fl (7.5-11.1); PLATELET COUNT 137 10^3/uL (134-434); RBC 4.47 M/mm3 (4.00-5.60); RDW 13.5 % (11.9-15.9); WHITE BLOOD COUNT 3.1 K/mm3 (4.0-10.0)
[2022-03-17 11:36] LABS: ALBUMIN 3.1 g/dl (3.4-5.0); BLOOD UREA NITROGEN 13.3 mg/dL (7-18)
[2022-03-17 11:37] LABS: CALCIUM 8.7 mg/dL (8.5-10.1)
[2022-03-17 11:39] LABS: CREATININE 0.8 mg/dL (0.55-1.3)
[2022-03-17 11:40] LABS: BILIRUBIN,TOTAL 0.8 mg/dL (0.2-1); TOT PROT 6.3 g/dl (6.4-8.2)
[2022-03-17] MEDS: MELATONIN 5 MG TABLETS PO SCH (23:42)
[2022-03-17] MEDS: THIAMINE HCL 100 MG TABLET (FP) PO SCH (23:42)
[2022-03-18] MEDS ORDERED: methaDONE HCL 40 MG DISPERSABLE TABLET ONE (04:05)
[2022-03-18] MEDS ORDERED: methaDONE HCL 10 MG TABLET ONE (04:05)
[2022-03-18] MEDS: hydrOXYzine PAMOATE 25 MG CAPSULE (FP) PO SCH ×2 (06:07→11:01)
[2022-03-18 09:24] VITALS: BP 125/68; PULSE 75; TEMP 96.8
[2022-03-18] MEDS: METHOCARBAMOL 500 MG TABLET PO PRN (11:01)
[2022-03-18] MEDS: PRENATAL VITAMINS W/ FOLIC ACID TABLET (FP) PO SCH (11:01)
[2022-03-19 00:14] LABS: SARS-CoV-2 NAA Not Detected (Not Detected)
== END 2022-03-18 12:11 | disposition other institution (70) | DRG 897 ==
LOC: YASAS 09:22 → Y6N 11:15
PROVIDERS: ADMIT Allergy & Immunology; ATTEND Surgery
PROC: HZ2ZZZZ Detoxification Services for Substance Abuse Treatment (ICD-10-PCS; principal; 2022-03-16)
DX: F10.230 Alcohol dependence with withdrawal, uncomplicated (principal); F11.20 Opioid dependence, uncomplicated; F13.20 Sedative, hypnotic or anxiolytic dependence, uncomplicated; F14.20 Cocaine dependence, uncomplicated; F12.20 Cannabis dependence, uncomplicated; F17.210 Nicotine dependence, cigarettes, uncomplicated; F31.9 Bipolar disorder, unspecified; F90.9 Attention-deficit hyperactivity disorder, unspecified type; B18.2 Chronic viral hepatitis C; M54.50 Low back pain, unspecified; G89.29 Other chronic pain; Z62.810 Personal history of physical and sexual abuse in childhood; Z91.410 Personal history of adult physical and sexual abuse; Z86.19 Personal history of other infectious and parasitic diseases; Z28.310 Unvaccinated for COVID-19
CPT/HCPCS: 36415; 80053; 85027; 86780; 87811; C9803-CS; U0003; U0005

== ENCOUNTER 2022-03-18 12:44 | Inpatient (IN) | payer OTHER ==
[2022-03-18] MEDS ORDERED: NICOTINE 10 MG CARTRIDGE (INHALER) IH PRN (14:08)
[2022-03-18] MEDS ORDERED: IBUPROFEN 400 MG TABLET (FP) PO PRN (14:08)
[2022-03-18] MEDS ORDERED: BENZOCAINE/MENTHOL (CHLORASEPTIC ) LOZENGE MM PRN (14:08)
[2022-03-18] MEDS ORDERED: P-EPHED 60MG/TRIPROLIDI 2.5MG TABLET PO PRN (14:08)
[2022-03-18] MEDS ORDERED: guaiFENesin 200 MG/10 ML 10 ML UNIT-DOSE CUPS PO PRN (14:08)
[2022-03-18] MEDS ORDERED: MAGNESIUM HYDROX 2400MG/30ML ORAL SUSPENSION 30 ML CUP PO PRN (14:08)
[2022-03-18] MEDS ORDERED: MAGNESIUM CITRATE 300 ML BOTTLE PO PRN (14:08)
[2022-03-18] MEDS ORDERED: MAG HYDROX/AL HYDROX/SIMETH 30 ML UNIT-DOSE CUP PO PRN (14:08)
[2022-03-18] MEDS ORDERED: ACETAMINOPHEN 325 MG TABLET (FP) PO PRN (14:08)
[2022-03-18] MEDS ORDERED: LOPERAMIDE HCL 2 MG CAPSULE PO PRN (14:08)
[2022-03-18] MEDS: hydrOXYzine PAMOATE 25 MG CAPSULE (FP) PO SCH ×2 (19:25→21:39)
[2022-03-18] MEDS: busPIRone HCL 5 MG TABLET PO SCH (21:39)
[2022-03-18] MEDS ORDERED: hydrOXYzine PAMOATE 50 MG CAPSULE (FP) PO SCH (22:00)
[2022-03-18] MEDS ORDERED: MELATONIN 5 MG TABLETS PO SCH (22:00)
[2022-03-18] MEDS ORDERED: THIAMINE HCL 100 MG TABLET (FP) PO SCH (22:00)
[2022-03-19] MEDS: hydrOXYzine PAMOATE 25 MG CAPSULE (FP) PO SCH ×2 (06:50→09:41)
[2022-03-19] MEDS ORDERED: methaDONE HCL 40 MG DISPERSABLE TABLET ONE (09:10)
[2022-03-19] MEDS ORDERED: methaDONE HCL 10 MG TABLET ONE (09:10)
[2022-03-19 09:17] VITALS: BP 122/69; PULSE 74
[2022-03-19] MEDS: busPIRone HCL 5 MG TABLET PO SCH (09:41)
[2022-03-19] MEDS ORDERED: PRENATAL VITAMINS W/ FOLIC ACID TABLET (FP) PO SCH (10:00)
[2022-03-19] MEDS ORDERED: NICOTINE 7 MG/24 HOURS TOPICAL PATCH TD SCH (10:00)
[2022-03-19] MEDS ORDERED: methaDONE HCL 40 MG DISPERSABLE TABLET PO SCH (10:00)
== END 2022-03-19 10:21 | disposition home or self-care (01) | DRG 773 ==
LOC: YASAS 12:44 → Y3W 12:45
PROVIDERS: ADMIT Allergy & Immunology; ATTEND Psychiatry & Neurology Pain Medicine
PROC: HZ2ZZZZ Detoxification Services for Substance Abuse Treatment (ICD-10-PCS; principal; 2022-03-18)
DX: F11.20 Opioid dependence, uncomplicated (principal); F14.20 Cocaine dependence, uncomplicated; F13.20 Sedative, hypnotic or anxiolytic dependence, uncomplicated; F12.20 Cannabis dependence, uncomplicated; F17.210 Nicotine dependence, cigarettes, uncomplicated; F41.9 Anxiety disorder, unspecified; Z86.19 Personal history of other infectious and parasitic diseases

== ENCOUNTER 2024-07-13 15:00 | Inpatient (IN) | payer MEDICARE, OTHER ==
[2024-07-13 16:32] VITALS: BMI 25.0
[2024-07-13] MEDS ORDERED: BENZOCAINE/MENTHOL (CHLORASEPTIC ) LOZENGE MM PRN (18:53)
[2024-07-13] MEDS ORDERED: IBUPROFEN 600 MG TABLET (FP) PO PRN (18:53)
[2024-07-13] MEDS ORDERED: METHOCARBAMOL 500 MG TABLET PO PRN (18:53)
[2024-07-13] MEDS ORDERED: LOPERAMIDE HCL 2 MG CAPSULE PO PRN (18:53)
[2024-07-13] MEDS ORDERED: MAGNESIUM HYDROX 2400MG/30ML ORAL SUSPENSION 30 ML CUP PO PRN (18:53)
[2024-07-13] MEDS ORDERED: NALOXONE (NARCAN) HCL 4 MG/0.1 ML SPRAY NS PRN (18:53)
[2024-07-13] MEDS ORDERED: POLYETHYLENE GLYCOL (HEALTHYLAX) 3350 17 GM PACKET PO PRN (18:53)
[2024-07-13] MEDS ORDERED: BENZONATATE 200 MG CAPSULE PO PRN (18:53)
[2024-07-13] MEDS ORDERED: NALOXONE HCL 0.4 MG/ML VIAL IM PRN (18:53)
[2024-07-13] MEDS ORDERED: ONDANSETRON *ODT* 4 MG TABLET SL PRN (18:53)
[2024-07-13] MEDS ORDERED: IBUPROFEN 400 MG TABLET (FP) PO PRN (18:53)
[2024-07-13] MEDS ORDERED: guaiFENesin 600 MG TABLET.ER (FP) PO PRN (18:53)
[2024-07-13] MEDS ORDERED: MAG HYDROX/AL HYDROX/SIMETH 30 ML UNIT-DOSE CUP PO PRN (18:53)
[2024-07-13] MEDS ORDERED: hydrOXYzine PAMOATE 25 MG CAPSULE (FP) PO PRN (18:53)
[2024-07-13] MEDS ORDERED: BISMUTH SUBSALICYLATE 524 MG/30 ML PO PRN (18:53)
[2024-07-13] MEDS ORDERED: ACETAMINOPHEN 325 MG TABLET (FP) PO PRN (18:53)
[2024-07-13] MEDS ORDERED: DICYCLOMINE HCL 10 MG CAPSULE PO PRN (18:53)
[2024-07-13] MEDS: MELATONIN 5 MG TABLETS PO SCH (22:34)
[2024-07-13] MEDS: THIAMINE 100 MG TABLET PO SCH (22:35)
[2024-07-14] MEDS: PRENATAL VITAMINS W/ FOLIC ACID TABLET (FP) PO SCH (10:49)
[2024-07-14] MEDS: diazePAM 5 MG TABLET PO SCH (10:51)
[2024-07-14] MEDS: methaDONE HCL 10 MG TABLET PO SCH (10:54)
[2024-07-14] MEDS: diazePAM 5 MG TABLET PO PRN (14:03)
[2024-07-14 14:16] LABS: CHLORIDE 100 mmol/L (98-107); HEMATOCRIT 34.8 % (35.4-49); HEMOGLOBIN 11.6 GM/dL (11.7-16.9); MCH 28.6 pg (25.7-33.7); MCHC 33.4 g/dl (32.0-35.9); MEAN CELL VOLUME 85.4 fl (80-96); MEAN PLT VOLUME 9.3 fl (7.5-11.1); PLATELET COUNT 182 10^3/uL (134-434); POTASSIUM 4.4 mmol/L (3.5-5.1); RBC 4.08 M/mm3 (4.00-5.60); RDW 13.4 % (11.9-15.9); SODIUM 135 mmol/L (136-145); WHITE BLOOD COUNT 5.1 K/mm3 (4.0-10.0)
[2024-07-14 14:19] LABS: CALCIUM 8.9 mg/dL (8.5-10.1)
[2024-07-14 14:20] LABS: ALBUMIN 2.9 g/dl (3.4-5.0); ANION GAP 3 mmol/L (4-13); BLOOD UREA NITROGEN 17.5 mg/dL (7-18); CO2 32 mmol/L (21-32); GLUCOSE,RANDOM 112 mg/dL (74-106)
[2024-07-14 14:23] LABS: CREATININE 0.6 mg/dL (0.55-1.3); SGOT/AST 29 U/L (15-37); SGPT/ALT 35 U/L (13-61)
[2024-07-14 14:25] LABS: BILIRUBIN,TOTAL 0.5 mg/dL (0.2-1); TOT PROT 6.5 g/dl (6.4-8.2)
[2024-07-14 14:26] LABS: ALK PHOS 102 U/L (45-117)
[2024-07-15 16:54] VITALS: BP 122/68; PULSE 78; RESP 18; TEMP 97.6
[2024-07-15] MEDS: diazePAM 5 MG TABLET PO SCH (18:07)
[2024-07-16] MEDS ORDERED: diazePAM 5 MG TABLET PO SCH (06:00)
[2024-07-17] MEDS ORDERED: diazePAM 5 MG TABLET PO SCH (06:00)
[2024-07-18] MEDS ORDERED: diazePAM 5 MG TABLET PO ONE (06:00)
== END 2024-07-15 19:50 | disposition left against medical advice (07) | DRG 894 ==
LOC: YASAS 15:00 → Y3N 19:17
PROVIDERS: ADMIT Allergy & Immunology; ATTEND Surgery
PROC: HZ2ZZZZ Detoxification Services for Substance Abuse Treatment (ICD-10-PCS; principal; 2024-07-13)
DX: F10.230 Alcohol dependence with withdrawal, uncomplicated (principal); F14.20 Cocaine dependence, uncomplicated; F16.10 Hallucinogen abuse, uncomplicated; F12.20 Cannabis dependence, uncomplicated; F17.210 Nicotine dependence, cigarettes, uncomplicated; F31.9 Bipolar disorder, unspecified; F41.9 Anxiety disorder, unspecified; B18.2 Chronic viral hepatitis C; M54.50 Low back pain, unspecified; G89.29 Other chronic pain; Z91.199 Patient's noncompliance with other medical treatment and regimen due to unspecified reason
CPT/HCPCS: 36415; 80053; 80305; 80307; 85027; 86780; 93005; 93010

== ENCOUNTER 2024-07-18 21:51 | Inpatient (IN) | payer OTHER ==
[2024-07-18 22:35] VITALS: BMI 20.5
[2024-07-18] MEDS ORDERED: IBUPROFEN 400 MG TABLET (FP) PO PRN (23:01)
[2024-07-18] MEDS ORDERED: POLYETHYLENE GLYCOL (HEALTHYLAX) 3350 17 GM PACKET PO PRN (23:01)
[2024-07-18] MEDS ORDERED: ONDANSETRON *ODT* 4 MG TABLET SL PRN (23:01)
[2024-07-18] MEDS ORDERED: BENZONATATE 200 MG CAPSULE PO PRN (23:01)
[2024-07-18] MEDS ORDERED: MAG HYDROX/AL HYDROX/SIMETH 30 ML UNIT-DOSE CUP PO PRN (23:01)
[2024-07-18] MEDS ORDERED: NALOXONE (NARCAN) HCL 4 MG/0.1 ML SPRAY NS PRN (23:01)
[2024-07-18] MEDS ORDERED: METHOCARBAMOL 500 MG TABLET PO PRN (23:01)
[2024-07-18] MEDS ORDERED: guaiFENesin 600 MG TABLET.ER (FP) PO PRN (23:01)
[2024-07-18] MEDS ORDERED: BISMUTH SUBSALICYLATE 524 MG/30 ML PO PRN (23:01)
[2024-07-18] MEDS ORDERED: IBUPROFEN 600 MG TABLET (FP) PO PRN (23:01)
[2024-07-18] MEDS ORDERED: MAGNESIUM HYDROX 2400MG/30ML ORAL SUSPENSION 30 ML CUP PO PRN (23:01)
[2024-07-18] MEDS ORDERED: DICYCLOMINE HCL 10 MG CAPSULE PO PRN (23:01)
[2024-07-18] MEDS ORDERED: ACETAMINOPHEN 325 MG TABLET (FP) PO PRN (23:01)
[2024-07-18] MEDS ORDERED: BENZOCAINE/MENTHOL (CHLORASEPTIC ) LOZENGE MM PRN (23:01)
[2024-07-18] MEDS ORDERED: NALOXONE HCL 0.4 MG/ML VIAL IM PRN (23:01)
[2024-07-18] MEDS ORDERED: LOPERAMIDE HCL 2 MG CAPSULE PO PRN (23:01)
[2024-07-18] MEDS ORDERED: P-EPHED 60MG/TRIPROLIDI 2.5MG TABLET PO PRN (23:01)
[2024-07-18] MEDS ORDERED: NICOTINE POLACRILEX 2 MG GUM BUC PRN (23:01)
[2024-07-18] MEDS ORDERED: NICOTINE POLACRILEX 2 MG LOZENGE BC PRN (23:01)
[2024-07-18] MEDS: SULFAMETHOXAZOLE/TRIMETHOPRIM 800MG/160MG D.S. TABLET PO SCH (23:24)
[2024-07-18] MEDS: levETIRAcetam 500 MG TABLET (FP) PO SCH (23:24)
[2024-07-19 09:16] VITALS: BP 109/68; PULSE 70; RESP 18; TEMP 96.9
[2024-07-19] MEDS ORDERED: methaDONE HCL 10 MG TABLET PO ONE (10:21)
[2024-07-19] MEDS: PRENATAL VITAMINS W/ FOLIC ACID TABLET (FP) PO SCH (10:22)
[2024-07-19] MEDS ORDERED: MELATONIN 5 MG TABLETS PO SCH (22:00)
[2024-07-19] MEDS ORDERED: THIAMINE 100 MG TABLET PO SCH (22:00)
== END 2024-07-19 11:09 | disposition left against medical advice (07) | DRG 770 ==
LOC: YASAS 21:51 → Y6N 23:02
PROVIDERS: ADMIT Allergy & Immunology; ATTEND Surgery
PROC: HZ2ZZZZ Detoxification Services for Substance Abuse Treatment (ICD-10-PCS; principal; 2024-07-18)
DX: F10.230 Alcohol dependence with withdrawal, uncomplicated (principal); F11.20 Opioid dependence, uncomplicated; F14.20 Cocaine dependence, uncomplicated; F13.20 Sedative, hypnotic or anxiolytic dependence, uncomplicated; F16.20 Hallucinogen dependence, uncomplicated; F12.20 Cannabis dependence, uncomplicated; F17.210 Nicotine dependence, cigarettes, uncomplicated; F31.9 Bipolar disorder, unspecified; F41.9 Anxiety disorder, unspecified; B18.2 Chronic viral hepatitis C; Z59.02 Unsheltered homelessness
CPT/HCPCS: 80305; 80307